=== PATIENT | female | born 1965 | race American Indian/Alaskan Native ===

== ENCOUNTER 2017-10-19 20:33 | Emergency (ER) | payer MEDICAID ==
[2017-10-19 20:33] VITALS: BMI 28.9
[2017-10-19 20:49] VITALS: RESP 17; TEMP 100.1
--- NOTE | 2017-10-19 21:14 | ED PDOC ---
Arrival/HPI - General Chief Complaint: Flu-like Symptoms Time Seen by Provider: 10/19/17 21:00 Historian: Patient - History of Present Illness Narrative History of Present Illness (Text): 10/19/17 21:10 52 year old female, whose history includes congestive heart failure and hypertension, presents to the Emergency department complaining of dyspnea for over a week. Patient reports her shortness of breath worsened about 5 days ago when she developed a cold. Patient states she needs to use 3 pillows to sleep at night. Patient also complains of a productive cough, decreased appetite, headache, muscle aches, subjective fever, and chills. Patient denies any chest pain, nausea, vomiting, diarrhea, urinary symptoms, back pain, neck pain, dizziness, or any other complaints. Time/Duration: > week Symptom Onset: Gradual Symptom Course: Unchanged Activities at Onset: Rest, Light Context: Home Past Medical History - Provider Review Nursing Documentation Reviewed: Yes - Infectious Disease Hx of Infectious Diseases: None - Tetanus Immunization Tetanus Immunization: Unknown - Reproductive Menopause: Yes - Cardiac Hx Cardiac Disorders: Yes Hx Cardiac Arrhythmia: Yes Hx Congestive Heart Failure: Yes Hx Hypertension: Yes - Pulmonary Hx Asthma: Yes Hx Chronic Obstructive Pulmonary Disease (COPD): Yes - Neurological Hx Neurological Disorder: No - HEENT Hx HEENT Disorder: No - Renal Hx Renal Disorder: No - Endocrine/Metabolic Hx Endocrine Disorders: No - Hematological/Oncological Hx Blood Disorders: No - Integumentary Hx Dermatological Disorder: No - Musculoskeletal/Rheumatological Hx Musculoskeletal Disorders: Yes (SCIATICA) Hx Arthritis: Yes Hx Falls: No - Gastrointestinal Hx Gastrointestinal Disorders: No - Genitourinary/Gynecological Hx Genitourinary Disorders: Yes (PARTIAL HYSTERECTOMY) - Psychiatric Hx Psychophysiologic Disorder: Yes Hx Anxiety: Yes Hx Depression: Yes Hx Emotional Abuse: No Hx Physical Abuse: No Hx Substance Use: Yes (MARIJUANA LAST USED 10-24-15) - Surgical History Hx Hysterectomy: Yes - Anesthesia Hx Anesthesia: Yes Hx Anesthesia Reactions: No - Suicidal Assessment Feels Threatened In Home Enviroment: No Family/Social History - Physician Review Nursing Documentation Reviewed: Yes Family/Social History: Unknown Family HX Smoking Status: Former Smoker Hx Alcohol Use: Yes Frequency of alcohol use: Socially Hx Substance Use: Yes (MARIJUANA LAST USED 10-24-15) Substance used: CANNABIS Hx Substance Use Treatment: No Allergies/Home Meds Allergies/Adverse Reactions: Allergies No Known Allergies Allergy (Verified 10/19/17 20:41) Review of Systems - Physician Review All systems were reviewed & negative as marked: Yes - Review of Systems Constitutional: Fevers (subjective), Night Sweats, Other (decreased appetite) Eyes: Normal ENT: Normal Respiratory: SOB, Cough, Sputum Cardiovascular: Normal. absent: Chest Pain Gastrointestinal: Normal Genitourinary Female: Normal Musculoskeletal: Myalgias Skin: Normal Neurological: Headache Endocrine: Normal Hemo/Lymphatic: Normal Psychiatric: Normal Physical Exam Vital Signs Reviewed: Yes Vital Signs Temp Pulse Resp BP Pulse Ox 10/19/17 20:46 100.1 F H 113 H 17 142/89 99 Temperature: Febrile Blood Pressure: Normal Pulse: Tachycardic Respiratory Rate: Normal Appearance: Positive for: Well-Appearing, Non-Toxic, Comfortable Pain Distress: None Mental Status: Positive for: Alert and Oriented X 3 - Systems Exam Head: Present: Atraumatic, Normocephalic Pupils: Present: PERRL Extroacular Muscles: Present: EOMI Conjunctiva: Present: Normal Mouth: Present: Moist Mucous Membranes Neck: Present: Normal Range of Motion Respiratory/Chest: Present: Clear to Auscultation, Good Air Exchange. No: Respiratory Distress, Accessory Muscle Use Cardiovascular: Present: Regular Rate and Rhythm, Normal S1, S2. No: Murmurs Abdomen: Present: Normal Bowel Sounds. No: Tenderness, Distention, Peritoneal Signs Back: Present: Normal Inspection Upper Extremity: Present: Normal Inspection. No: Cyanosis, Edema Lower Extremity: Present: Normal Inspection. No: Edema Neurological: Present: GCS=15, CN II-XII Intact, Speech Normal Skin: Present: Warm, Dry, Normal Color. No: Rashes Psychiatric: Present: Alert, Oriented x 3, Normal Insight, Normal Concentration Medical Decision Making ED Course and Treatment: 10/19/17 21:21 You were treated in the ED today for difficulty breathing otherwise without any nausea/vomiting/dizziness/chest pain/abdomen pain/numbness/tingling/loss of limb function/pain with urination. You showed good strength/sensation, walking easily, clear lungs, no abdomen tenderness, your vision was such fever temp 100.1, elevated heart rate 113, stable breathing rate 17, excellent oxygen level 99% room air, stable blood pressure 142/89 which we recommend repeat in 2- 3 days primary care office to determine further treatment, you have blood tests no infection count ___, stable blood level hemoglobin___/platelets___, stable chemistry, potassium 3.3 and low which was replaced, heart blood test____, low risk of blood clot____, urine test____, urine test , radiology____ _, ECG, we flushed your eyes done in the ED with improvement, counselled to stop and thus discharged home with . 1. Recommend 2. Recommend 3. Recommend follow-up primary care 2-3 days to review symptoms. 4. If any worsening pain, fever, chills, nausea, vomiting, difficulty breathing, numbness, loss of limb function, pain with urination or any medical condition then return to the ED. Plan: -- EKG -- D Dimer -- VBG -- Urine and blood cultures -- Urinalysis -- Labs -- Influenza test -- Reassess and disposition 10/19/17 22:01 - Lab Interpretations Lab Results: 10/19/17 21:25 Lab Results 10/19/17 21:25: Sodium 138, Potassium 3.3 L, Chloride 103, Carbon Dioxide 24, Anion Gap 14, BUN 11, Creatinine 0.7, Est GFR ( Amer) > 60, Est GFR (Non- Af Amer) > 60, Random Glucose 100, Calcium 10.1, Magnesium 1.8, Total Bilirubin 0.4, AST 36, ALT 36, Alkaline Phosphatase 74, Lactate Dehydrogenase 423, Total Creatine Kinase 74, Troponin I Pending, NT-Pro-B Natriuret Pep Pending, Total Protein 8.5 H, Albumin 4.5, Globulin 4.0, Albumin/Globulin Ratio 1.1 - Medication Orders Current Medication Orders: Potassium Chloride (K-Dur 20 Meq Er Tab) 40 meq PO STAT STA Stop: 10/19/17 22:01 - Scribe Statement The provider has reviewed the documentation as recorded by the Beverley Starks Provider Scribe Attestation: All medical record entries made by the Scribe were at my direction and personally dictated by me. I have reviewed the chart and agree that the record accurately reflects my personal performance of the history, physical exam, medical decision making, and the department course for this patient. I have also personally directed, reviewed, and agree with the discharge instructions and disposition. Disposition/Present on Arrival - Present on Arrival History of DVT/PE: No History of Uncontrolled Diabetes: No Urinary Catheter: No History of Decub. Ulcer: No History Surgical Site Infection Following: None - Disposition Forms: [employer] (Uzbek)
[2017-10-19 21:55] LABS: ALBUMIN 4.5 g/dL (3.0-4.8); ALT/SGPT 36 U/L (7-56); AST/SGOT 36 U/L (14-36); BLOOD UREA NITROGEN 11 mg/dL (7-21); CALCIUM 10.1 mg/dL (8.4-10.5); GFR AFRICAN-AMERICAN > 60; GFR NON-AFRICAN AMERICAN > 60; MAGNESIUM 1.8 mg/dL (1.7-2.2)
[2017-10-19 22:00] LABS: ALB/GLOB RATIO 1.1 (1.1-1.8); BASO # 0.01 K/mm3 (0.0-2.0); BASO % 0.2 % (0.0-3.0); EOS % 0.9 % (1.5-5.0); GRAN # 2.66 (1.4-6.5); GRAN % 60.6 % (50.0-68.0); HEMOGLOBIN 12.8 g/dL (12.0-16.0); LYMPH # 1.3 (1.2-3.4); LYMPH % 29.4 % (22.0-35.0); MEAN CELL VOLUME 89.3 fl (80.0-105.0); MEAN CORPUSCULAR HEMOGLOBIN 30.4 pg (25.0-35.0); MEAN PLATELET VOLUME 9.7 fl (7.0-11.0); MONO # 0.4 (0.1-0.6); MONO % 8.9 % (1.0-6.0); RBC 4.21 10^6/uL (3.5-6.1); WHITE BLOOD COUNT 4.4 10^3/ul (4.5-11.0)
[2017-10-19] MEDS ORDERED: Potassium Chloride 20 mEq ER Tab PO STA (22:00)
[2017-10-19 22:08] LABS: B-TYPE NATRIURETIC PEPTIDE 51.6 pg/mL (0-450); INR 1.09 (0.93-1.08); PARTIAL THROMBOPLASTIN TIME 27.8 Seconds (25.1-36.5); PROTHROMBIN TIME 12.5 SECONDS (9.4-12.5); TROPONIN I 0.01 ng/mL
[2017-10-19] MEDS ORDERED: Sodium Chloride 0.9% 500 ML IV STA (22:31)
[2017-10-19 22:33] LABS: VENOUS BLOOD GAS PO2 50 mm/Hg (30-55); VENOUS BLOOD PH 7.36 (7.32-7.43)
[2017-10-19] MEDS ORDERED: Iodixanol 320 MG/ML 100 ML BOTTLE IV ONE (23:18)
--- NOTE | 2017-10-20 00:11 | ED PDOC ---
Physical Exam Vital Signs Temp Pulse Resp BP Pulse Ox 10/20/17 00:34 98 H 17 135/97 H 100 10/19/17 20:46 100.1 F H 113 H 17 142/89 99 Medical Decision Making ED Course and Treatment: 10/19/17 23:00 Case endorsed to me by Dr. Bedoya, pending CTA Chest, re-evaluation, and disposition. 10/20/17 00:41 CTA Chest shows: Pulmonary arteries: No pulmonary embolism. Aorta: No aneurysm. No dissection. Lungs: Minimal atelectasis/scarring. No consolidation. Pleural space: No significant effusion. No pneumothorax. Heart: No cardiomegaly. No significant pericardial effusion. Bones/joints: No acute fracture. Soft tissues: Unremarkable. Lymph nodes: No pathologically enlarged lymph nodes. Liver: Few low-attenuation lesions with benign imaging features. IMPRESSION: 1. No CT evidence of pulmonary embolism. 2. Liver lesions. No follow-up is necessary. 3. Incidental/non-acute findings are described above. 10/20/17 01:15 On reevaluation the patient feels better and is in no acute distress. I have discussed the results and plan with the patient, who expresses understanding. Patient given the opportunity to ask question, all questions were answered and there is agreement with the plan to discharge the patient home. Patient is stable for discharge. Patient was instructed to follow up with physician/clinic in 1-2 days or return if symptoms persist/worsen or new concerning symptoms arise. - Lab Interpretations Lab Results: 10/19/17 21:25 10/19/17 21:25 Lab Results 10/19/17 22:05: pO2 50, VBG pH 7.36, VBG pCO2 48.0, VBG HCO3 27.1, VBG Total CO2 28.6 H, VBG O2 Sat (Calc) 87.8 H, VBG Base Excess 1.0, VBG Potassium 3.3 L, Glucose 102, Lactate 1.1, FiO2 21.0, Sodium 136.0, Chloride 104.0, Venous Blood Potassium 3.3 L 10/19/17 22:05: Influenza Typ A,B (EIA) Negative for flu a/b 10/19/17 21:25: Sodium 138, Potassium 3.3 L, Chloride 103, Carbon Dioxide 24, Anion Gap 14, BUN 11, Creatinine 0.7, Est GFR ( Amer) > 60, Est GFR (Non- Af Amer) > 60, Random Glucose 100, Calcium 10.1, Magnesium 1.8, Total Bilirubin 0.4, AST 36, ALT 36, Alkaline Phosphatase 74, Lactate Dehydrogenase 423, Total Creatine Kinase 74, Troponin I 0.01 D, NT-Pro-B Natriuret Pep 51.6, Total Protein 8.5 H, Albumin 4.5, Globulin 4.0, Albumin/Globulin Ratio 1.1 10/19/17 21:25: PT 12.5, INR 1.09 H, APTT 27.8, D-Dimer, Quantitative 316 H 10/19/17 21:25: WBC 4.4 L D, RBC 4.21, Hgb 12.8, Hct 37.6, MCV 89.3, MCH 30.4, MCHC 34.0, RDW 13.0, Plt Count 241, MPV 9.7, Gran % 60.6, Lymph % (Auto) 29.4, [place] % (Auto) 8.9 H, Eos % (Auto) 0.9 L, Baso % (Auto) 0.2, Gran # 2.66, Lymph # 1.3, [place] # 0.4, Eos # 0.0, Baso # 0.01 - RAD Interpretation Radiology Orders: 10/19/17 22:31 ANGIO CHEST PE PROTOCOL [CT] Stat Editorial Project Manager: Radiologist - Medication Orders Current Medication Orders: Discontinued Medications Acetaminophen (Tylenol 325mg Tab) 975 mg PO STAT STA Stop: 10/20/17 00:18 Last Admin: 10/20/17 00:35 Dose: 975 mg Sodium Chloride (Sodium Chloride 0.9%) 500 mls @ 999 mls/hr IV .Q31M STA Stop: 10/19/17 23:01 Last Admin: 10/19/17 23:00 Dose: 999 mls/hr eMAR Start Stop Document 10/19/17 23:00 RD (Rec: 10/19/17 23:27 RD [id number]) Intravenous Solution Start Date 10/19/17 Start Time 23:00 End Date 10/20/17 End time 00:00 Total Infusion Time 60 Potassium Chloride (K-Dur 20 Meq Er Tab) 40 meq PO STAT STA Stop: 10/19/17 22:01 Last Admin: 10/19/17 22:34 Dose: 40 meq Comments: Scanner Out of Range Disposition/Present on Arrival - Present on Arrival Any Indicators Present on Arrival: No History of DVT/PE: No History of Uncontrolled Diabetes: No Urinary Catheter: No History of Decub. Ulcer: No History Surgical Site Infection Following: None - Disposition Have Diagnosis and Disposition been Completed?: Yes Diagnosis: Upper respiratory infection Disposition: HOME/ ROUTINE Disposition Time: 01:15 Condition: GOOD Discharge Instructions (ExitCare): Upper Respiratory Infection (ED) Referrals: Alex Ewing MD [Primary Care Provider] - Follow up with primary Forms: [employer] (Ukrainian)
[2017-10-20 00:35] VITALS: BP 135/97; PULSE 98; O2SAT 100
--- NOTE | 2017-10-20 00:39 | CT ---
EXAM: CT Angiography Chest With Intravenous Contrast CLINICAL HISTORY: 52 years old, female; Signs and symptoms; Shortness of breath; Additional info: 52yof, SOB with elevated d-dimer. Eval pe. TECHNIQUE: Axial computed tomographic angiography images of the chest with intravenous contrast using pulmonary embolism protocol. All CT scans at this facility use one or more dose reduction techniques, viz.: automated exposure control; ma/kV adjustment per patient size (including targeted exams where dose is matched to indication; i.e. head); or iterative reconstruction technique. MIP reconstructed images were created and reviewed. Coronal and sagittal reformatted images were created and reviewed. CONTRAST: 94 mL of visi 320 administered intravenously. COMPARISON: CT - ANGIO CHEST PE PROTOCOL 2016-07-01 16:56 FINDINGS: Pulmonary arteries: No pulmonary embolism. Aorta: No aneurysm. No dissection. Lungs: Minimal atelectasis/scarring. No consolidation. Pleural space: No significant effusion. No pneumothorax. Heart: No cardiomegaly. No significant pericardial effusion. Bones/joints: No acute fracture. Soft tissues: Unremarkable. Lymph nodes: No pathologically enlarged lymph nodes. Liver: Few low-attenuation lesions with benign imaging features. IMPRESSION: 1. No CT evidence of pulmonary embolism. 2. Liver lesions. No follow-up is necessary. 3. Incidental/non-acute findings are described above.
--- NOTE | 2017-10-20 09:53 | CARD ---
APPROVED REPORT EKG Measurement Heart [id number] <Conclusion> Normal sinus rhythm Moderate voltage criteria for LVH, may be normal variant Nonspecific ST and T wave abnormality
== END 2017-10-20 01:30 | disposition home or self-care (01) ==
LOC: ED 20:33
DX: J06.9 Acute upper respiratory infection, unspecified (principal)
CPT/HCPCS: 71275; 80053; 82550; 82803; 83615; 83735; 83880; 84484; 85025; 85378; 85610; 85730; 87040; 87804; 93005; 96360; 99284; J7040; Q9967

== ENCOUNTER 2018-09-30 20:16 | Emergency (ER) | payer MEDICAID ==
[2018-09-30 20:17] VITALS: BMI 28.9
--- NOTE | 2018-09-30 21:28 | ED PDOC ---
Arrival/HPI - General Chief Complaint: Chest Pain Time Seen by Provider: 09/30/18 20:48 Historian: Patient - History of Present Illness Narrative History of Present Illness (Text): 09/30/18 21:29 53 year old female, whose past medical history includes CHF and Hypertension, presents to the emergency department with intermittent chest pain, today. She reports experiencing sharp pain a week prior, but attributed it to being gas. Patient states she has been getting the chest pain intermittently since then under her left breast reproducible to palpation. She reports left upper extremity parenthesias. 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 Patient informs smoking marijuana and drinking wine occasionally. Of note the patient reports her last echo(performed 6 months ago) revealed an EF of 41% which showed improvement from her initial CHF diagnosis. Patient denies any shortness of breath, dizziness, nausea, vomiting, fevers, chills, or any other complaint. Time/Duration: 24 hours, 1 week (incidence of acute pain 1 week ago) Symptom Course: Unchanged, Intermittent Context: Work Past Medical History - Provider Review Nursing Documentation Reviewed: Yes - Travel History Have you recently traveled outside [place] w/in the past 3 mons?: No - Infectious Disease Hx of Infectious Diseases: None - Tetanus Immunization Tetanus Immunization: Unknown - Cardiac Hx Cardiac Disorders: Yes Hx Cardiac Arrhythmia: Yes Hx Congestive Heart Failure: Yes Hx Hypertension: Yes - Pulmonary Hx Asthma: Yes Hx Chronic Obstructive Pulmonary Disease (COPD): Yes - Neurological Hx Neurological Disorder: No - HEENT Hx HEENT Disorder: No - Renal Hx Renal Disorder: No - Endocrine/Metabolic Hx Endocrine Disorders: No - Hematological/Oncological Hx Blood Disorders: No - Integumentary Hx Dermatological Disorder: No - Musculoskeletal/Rheumatological Hx Musculoskeletal Disorders: Yes (SCIATICA) Hx Arthritis: Yes Hx Falls: No - Gastrointestinal Hx Gastrointestinal Disorders: No - Genitourinary/Gynecological Hx Genitourinary Disorders: Yes (PARTIAL HYSTERECTOMY) - Psychiatric Hx Psychophysiologic Disorder: Yes Hx Anxiety: Yes Hx Depression: Yes Hx Emotional Abuse: No Hx Physical Abuse: No Hx Substance Use: Yes (MARIJUANA LAST USED 10-24-15) - Surgical History Hx Hysterectomy: Yes - Anesthesia Hx Anesthesia: Yes Hx Anesthesia Reactions: No Hx Malignant Hyperthermia: No - Suicidal Assessment Feels Threatened In Home Enviroment: No Family/Social History - Physician Review Nursing Documentation Reviewed: Yes Family/Social History: No Known Family HX Smoking Status: Former Smoker Hx Alcohol Use: Yes Frequency of alcohol use: Daily Hx Substance Use: Yes (MARIJUANA LAST USED 10-24-15) Substance used: CANNABIS Hx Substance Use Treatment: No Allergies/Home Meds Allergies/Adverse Reactions: Allergies No Known Allergies Allergy (Verified 10/19/17 20:41) Review of Systems - Physician Review All systems were reviewed & negative as marked: Yes - Review of Systems Constitutional: absent: Fevers, Night Sweats Respiratory: absent: SOB Cardiovascular: Chest Pain Gastrointestinal: absent: Nausea, Vomiting Neurological: absent: Dizziness Physical Exam Vital Signs Reviewed: Yes Temperature: Afebrile Blood Pressure: Normal Pulse: Regular Respiratory Rate: Normal Appearance: Positive for: Well-Appearing, Non-Toxic, Comfortable Pain Distress: None Mental Status: Positive for: Alert and Oriented X 3 - Systems Exam Head: Present: Atraumatic, Normocephalic Pupils: Present: PERRL Extroacular Muscles: Present: EOMI Conjunctiva: Present: Normal Ears: Present: Normal Mouth: Present: Moist Mucous Membranes Neck: Present: Normal Range of Motion Respiratory/Chest: Present: Clear to Auscultation, Good Air Exchange. No: Respiratory Distress, Wheezes, Decreased Breath Sounds, Rhonchi, Tachypneic Cardiovascular: Present: Regular Rate and Rhythm, Normal S1, S2 Abdomen: Present: Normal Bowel Sounds. No: Tenderness, Distention, Peritoneal Signs Upper Extremity: Present: Normal Inspection, Capillary Refill < 2s. No: Cyanosis, Edema Lower Extremity: Present: Normal Inspection, Capillary Refill < 2 s. No: Edema Neurological: Present: GCS=15, CN II-XII Intact, Speech Normal Skin: Present: Warm, Dry, Normal Color. No: Rashes Psychiatric: Present: Alert, Oriented x 3, Normal Insight, Normal Concentration Medical Decision Making ED Course and Treatment: 09/30/18 21:37 Impression: 53 year old female presents with chest pain Plan: -- Labs -- EKG -- Toradol --IV Fluids -- Chest X-ray -- Urinalysis -- Reassess and disposition Prior Visits: Notes and results from previous visits were reviewed. Progress Notes: 09/30/18 22:18 Labs reviewed with negative troponin and BNP. Patient reassessed and is asymptomatic at this time. Shared decision making employed with patient who will follow up with her PCP and tourist information assistant. Scripts provided. She is stable for discharge. - Lab Interpretations Lab Results: 09/30/18 21:40 09/30/18 21:40 Lab Results 09/30/18 21:40: Sodium 138, Potassium 3.8, Chloride 104, Carbon Dioxide 26, Anion Gap 11, BUN 15, Creatinine 0.8, Est GFR ( Amer) > 60, Est GFR (Non- Af Amer) > 60, Random Glucose 103, Calcium 10.2, Magnesium 2.0, Total Bilirubin 0.4, AST 37 H, ALT 36, Alkaline Phosphatase 91, Troponin I < 0.01, NT-Pro-B Natriuret Pep 63.6, Total Protein 8.6 H, Albumin 4.7, Globulin 3.9, Albumin/Globulin Ratio 1.2 09/30/18 21:40: WBC 5.9, RBC 4.30, Hgb 13.1, Hct 38.7, MCV 90.0, MCH 30.5, MCHC 33.9, RDW 13.9, Plt Count 310, MPV 9.7, Gran % 44.1 L, Lymph % (Auto) 45.6 H, [place] % (Auto) 6.7 H, Eos % (Auto) 2.9, Baso % (Auto) 0.7, Gran # 2.58, Lymph # (Auto) 2.7, [place] # (Auto) 0.4, Eos # (Auto) 0.2, Baso # (Auto) 0.04 I have reviewed the lab results: Yes - RAD Interpretation Radiology Orders: 09/30/18 20:49 CHEST PORTABLE [RAD] Stat - Scribe Statement The provider has reviewed the documentation as recorded by the Scribtrina Quevedo Provider Scribe Attestation: All medical record entries made by the Scribe were at my direction and pers onally dictated by me. I have reviewed the chart and agree that the record accurately reflects my personal performance of the history, physical exam, medical decision making, and the department course for this patient. I have also personally directed, reviewed, and agree with the discharge instructions and disposition. Disposition/Present on Arrival - Present on Arrival Any Indicators Present on Arrival: No History of DVT/PE: No History of Uncontrolled Diabetes: No Urinary Catheter: No History of Decub. Ulcer: No History Surgical Site Infection Following: None - Disposition Have Diagnosis and Disposition been Completed?: Yes Diagnosis: Chest pain Disposition: HOME/ ROUTINE Disposition Time: 22:22 Patient Plan: Discharge Condition: IMPROVED Discharge Instructions (ExitCare): Chest Pain That Is Not Caused by the Heart (DC), Heart Disease in Women (DC), Chest Pain (ED) Print Language: DJIBOUTIAN Additional Instructions: All medical record entries made by the Scribe were at my direction and personally dictated by me. I have reviewed the chart and agree that the record accurately reflects my personal performance of the history, physical exam, medical decision making, and the department course for this patient. I have also personally directed, reviewed, and agree with the discharge instructions and disposition. Prescriptions: Lidocaine 5% [Lidoderm] 1 ea TD Q12H #5 patch Referrals: Alex Ewing MD [Primary Care Provider] - Follow up with primary Cachorro Hunter MD [Staff Provider] - Follow up with primary Forms: [employer] (Kiswahili)
[2018-09-30 21:54] LABS: ALB/GLOB RATIO 1.2 (1.1-1.8); ALBUMIN 4.7 g/dL (3.0-4.8); ALT/SGPT 36 U/L (7-56); AST/SGOT 37 U/L (14-36); BLOOD UREA NITROGEN 15 mg/dL (7-21); CALCIUM 10.2 mg/dL (8.4-10.5); GFR NON-AFRICAN AMERICAN > 60
[2018-09-30 21:55] LABS: BASO # 0.04 K/mm3 (0.0-2.0); BASO % 0.7 % (0.0-3.0); EOS # 0.2 (0.0-0.7); EOS % 2.9 % (1.5-5.0); GRAN # 2.58 (1.4-6.5); GRAN % 44.1 % (50.0-68.0); HEMOGLOBIN 13.1 g/dL (12.0-16.0); LYMPH # 2.7 (1.2-3.4); LYMPH % 45.6 % (22.0-35.0); MEAN CORPUSCULAR HEMOGLOBIN 30.5 pg (25.0-35.0); MEAN CORPUSCULAR HGB CONC 33.9 g/dl (31.0-37.0); MEAN PLATELET VOLUME 9.7 fl (7.0-11.0); MONO # 0.4 (0.1-0.6); MONO % 6.7 % (1.0-6.0); RBC 4.3 10^6/uL (3.5-6.1); RED CELL DISTRIBUTION WIDTH 13.9 % (11.5-14.5); WHITE BLOOD COUNT 5.9 10^3/uL (4.5-11.0)
[2018-09-30 22:08] LABS: B-TYPE NATRIURETIC PEPTIDE 63.6 pg/mL (0-450); TROPONIN I < 0.01 ng/mL
[2018-09-30 22:12] VITALS: RESP 18; TEMP 98.3
[2018-09-30] MEDS ORDERED: Lidocaine 5% Patch TD ONE (22:23)
[2018-10-01 03:15] VITALS: BP 125/74; PULSE 67; O2SAT 100
--- NOTE | 2018-10-01 08:46 | RAD ---
Date of service: 09/30/2018 HISTORY: chest pain COMPARISON: 07/01/2016. FINDINGS: LUNGS: The lungs are well inflated and clear. PLEURA: No pleural effusions or pneumothorax. CARDIOVASCULAR: The heart is normal in size. No aortic atherosclerotic calcification present. OSSEOUS STRUCTURES: Within normal limits for the patient's age. VISUALIZED UPPER ABDOMEN: Normal. OTHER FINDINGS: None. IMPRESSION: No active pulmonary disease.
--- NOTE | 2018-10-01 11:20 | CARD ---
APPROVED REPORT Date of service: 09/30/2018 EKG Measurement Heart [id number] <Conclusion> Normal sinus rhythm Voltage criteria for left ventricular hypertrophy Nonspecific T wave abnormality Abnormal ECG
== END 2018-09-30 22:22 | disposition home or self-care (01) ==
LOC: ED 20:16
DX: R07.9 Chest pain, unspecified (principal); I50.9 Heart failure, unspecified; I10 Essential (primary) hypertension; J44.9 Chronic obstructive pulmonary disease, unspecified; Z87.891 Personal history of nicotine dependence